=== PATIENT | male | born 1970 | race Caucasian/White ===

== ENCOUNTER 2022-11-22 16:44 | Emergency (ER) | payer OTHER ==
[2022-11-22] MEDS ORDERED: Diphtheria,Pertussis(Acell),Tetanus Vaccine 0.5 ML Syringe IM ONE (17:16)
[2022-11-22] MEDS ORDERED: Lidocaine 1% with EPINEPHrine 1:100,000 20 ML MDV INJECT ONE (17:17)
== END 2022-11-22 17:35 | disposition home or self-care (01) ==
LOC: LB.ED 16:44
DX: S61.031A Puncture wound without foreign body of right thumb without damage to nail, initial encounter (principal); W45.8XXA Other foreign body or object entering through skin, initial encounter; Z79.899 Other long term (current) drug therapy
CPT/HCPCS: 90471; 90715; 99282-25